=== PATIENT | female | born 1980 | race Caucasian/White ===

== ENCOUNTER → 2022-12-07 | Outpatient (CLI) | payer BC | LOC: MHCPAIN 14:52 | DX: M54.50 Low back pain, unspecified (principal); G89.29 Other chronic pain; R76.8 Other specified abnormal immunological findings in serum | CPT/HCPCS: G0463 ==

== ENCOUNTER → 2023-01-03 | Outpatient (CLI) | payer BC | LOC: MHCPAIN 10:32 | DX: M79.18 Myalgia, other site (principal); R51.9 Headache, unspecified; R76.8 Other specified abnormal immunological findings in serum | CPT/HCPCS: G0463 ==

== ENCOUNTER → 2024-04-02 | Outpatient (CLI) | payer BC | LOC: MHCPAIN 14:00 | DX: M54.50 Low back pain, unspecified (principal); G89.29 Other chronic pain; R53.83 Other fatigue | CPT/HCPCS: G0463 ==

== ENCOUNTER → 2024-06-22 | Outpatient (CLI) | payer BC ==
[2024-06-22 12:21] LABS: HEMATOCRIT 40.8 % (37.0-47.0); HEMOGLOBIN 13.8 g/dl (12.5-16.0); MEAN CELL VOLUME 88 fl (80.0-100.0); MEAN CORPUSCULAR HEMOGLOBIN 30 pg (27-31); MEAN CORPUSCULAR HGB CONC 34 g/dl (33.0-37.0); MEAN PLATELET VOLUME 10.5 fl (7.4-10.4); PLATELET COUNT 133 K/mm3 (130-400); RED BLOOD COUNT 4.63 M/mm3 (4.10-5.30); REDCELL DISTRIBUTION WIDTH-CV 12.4 % (11.5-14.5)
== END ==
LOC: COL.RAD 11:41 → COL.LAB 11:44
PROVIDERS: Physical Medicine & Rehabilitation Sports Medicine
DX: R53.83 Other fatigue (principal)

== ENCOUNTER → 2024-06-22 | Outpatient (CLI) | payer BC | LOC: MHCPAIN 10:47 | DX: M53.3 Sacrococcygeal disorders, not elsewhere classified (principal); G89.29 Other chronic pain; R53.83 Other fatigue ==

== ENCOUNTER → 2024-08-03 | Outpatient (CLI) | payer BC ==
[~2024-08-03] MED LIST: Iohexol 300 - 10 ML VIAL ONE; Lidocaine PF 1% (10 MG/ML) 5 ML VIAL ONE; Triamcinolone 40 MG/ML 1 ML VIAL ONE
== END ==
LOC: MHCPAIN 11:13
DX: M54.50 Low back pain, unspecified (principal); M53.3 Sacrococcygeal disorders, not elsewhere classified
CPT/HCPCS: G0260; J3301; Q9967

== ENCOUNTER → 2024-10-05 | Outpatient (CLI) | payer BC | LOC: MHCPAIN 10:22 | DX: M79.18 Myalgia, other site (principal); M53.3 Sacrococcygeal disorders, not elsewhere classified; R53.83 Other fatigue; G89.29 Other chronic pain | CPT/HCPCS: G0463 ==